=== PATIENT | male | born 1955 | race Two or more races ===

== ENCOUNTER → 2021-02-01 23:38 | Outpatient (CLI) | payer OTHER | END | disposition home or self-care (01) | LOC: PPH VACUNA 23:38 | DX: Z23 Encounter for immunization (principal) ==

== ENCOUNTER 2021-10-19 08:00 | Outpatient (CLI) | payer OTHER | END 2021-10-19 08:30 | disposition home or self-care (01) | LOC: PPH VACUNA 08:00 | PROVIDERS: ATTEND Emergency Medicine Pediatric Emergency Medicine | DX: Z23 Encounter for immunization (principal) ==